=== PATIENT | female | born 1935 | race Caucasian/White ===

== ENCOUNTER 2022-11-08 13:24 | Emergency (ER) | payer MEDICARE, BC, SELFPAY ==
[2022-11-08 13:28] VITALS: BP 143/67; PULSE 79; RESP 16; TEMP 35.8; O2SAT 94; BMI 27.6
--- NOTE | 2022-11-08 14:14 | ED_ITS ---
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 Patient states that last evening she noticed some blood around her rectal area. This morning she had a normal bowel movement but a small amount of blood at that time. However, she then experienced a large amount of diarrhea with bianca blood in it. She notes no abdominal pain at this time. She has not had fever or chills. She did have 1 moment last week where she had a day where she felt incredibly fatigued but in nap seemed to improve it and she was fine the next day. In regards to previous GI bleed 8 years ago she noted IA hemoglobin under 5. She states that she really was not symptomatic. She had endoscopies and colonoscopy at that time and was found that she had a small ulcer at the junction of the small and large intestine where the reattachment had been done previous. 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 Martina is not currently on blood thinners but does take 1 baby aspirin daily. She has not had fever or chills. She does have a contrast dye allergy which results in a rash. Patient denies rapid heart rate but states that she takes metoprolol for that reason. She also had a a valve replacement 3 years ago. Related Data Allergies Allergy/AdvReac Type Severity Reaction Status Date / Time contrat dye Allergy Severe Anaphylaxis Uncoded 11/08/22 13:33 buffered aspirin Allergy Intermediate bleeding Uncoded 11/08/22 13:33 lisinopril AdvReac Severe cough Uncoded 11/08/22 13:33 Review of Systems Status of ROS: Reports: 10 or more systems reviewed and unremarkable except as noted in History and below Const: Denies: fever or chills ENMT: Denies: throat pain or neck pain Cardio: Denies: chest pain, palpitations, swelling of feet/ankles, lightheadedness or shortness of breath with exertion Resp: Denies: shortness of breath or cough GI: Reports: diarrhea and blood in stool; Denies: abdominal pain, nausea or vomiting : Denies: painful urination or urinary frequency Musculo: Denies: neck pain Neuro: Denies: headache or weakness in extremities PFSH PFS Social History Smoking Status: Never smoker Do you use any of these nicotine containing products: None Second hand tobacco smoke exposure: No How often do you have a drink containing alcohol: monthly or less How many standard drinks containing alcohol do you have on a typical day: 1 or 2 How often do you have six or more drinks on one occasion: Never AUDIT-C Alcohol total score: 1 Non-prescribed substance use: denies use service: No Exam Narrative: Exam Narrative: Martina is alert and oriented. She is not in any acute distress. Her eyes are clear. Face is symmetrical. Oral cavity with moist mucous membranes. Flipping of the lower lid shows good color. Heart with regular rate and rhythm and lungs are clear to auscultation. Abdomen is soft there is no tenderness or masses noted. Lower extremities without edema. Const: Vital Signs, click to edit/add: Vital Signs - 24 hr 11/08/22 13:28 11/08/22 17:04 Temperature 96.5 F L Pulse Rate [Pulse Oximeter] 79 70 Respiratory Rate 16 16 Blood Pressure [Ri ght Upper Arm] 143/67 H 194/81 H Pulse Oximetry 94 Oxygen Delivery Me thod Room Air Documenting provider has reviewed patient's vital signs: yes Course Course Hospital Course: At this time will have IV placed. CBC, comprehensive panel, INR all ordered. Will go through with CT without contrast of the abdomen and pelvis at this time. Vital signs reassuring with no evidence of tachycardia or hypotension. Reevaluation(s) Reevaluation #1: Patient is doing well at this time. No repeat episodes of blood in diarrhea. Vital signs remained stable with no evidence of hypotension or tachycardia. Note that patient is on a beta-kyle. Vital Signs Vital signs: Initial Vital Signs Temperature 96.5 F L 11/08/22 13:28 Temperature Source Temporal Artery Scan 11/08/22 13:28 Pulse Rate 79 11/08/22 13:28 Pulse Rhythm 11/08/22 13:28 Pulse Strength 3+ Normal 11/08/22 13:28 Respiratory Rate 16 11/08/22 13:28 Blood Pressure 143/67 H 11/08/22 13:28 Blood Pressure Mean 92 11/08/22 13:28 Blood Pressure Position Sitting 11/08/22 13:28 Pulse Oximetry 94 11/08/22 13:28 Oxygen Delivery Method 11/08/22 13:28 Vital Signs Temperature 96.5 F L 11/08/22 13:28 Pulse Rate 79 11/08/22 13:28 Respiratory Rate 16 11/08/22 13:28 Blood Pressure 143/67 H 11/08/22 13:28 Pulse Oximetry 94 11/08/22 13:28 Oxygen Delivery Method 11/08/22 13:28 Temperature 96.5 F L 11/08/22 13:28 Pulse Rate 70 11/08/22 17:04 Respiratory Rate 16 11/08/22 17:04 Blood Pressure 194/81 H 11/08/22 17:04 Pulse Oximetry 94 11/08/22 13:28 Oxygen Delivery Method 11/08/22 13:28 Medical Decision Making MDM Narrative Medical decision making narrative: 1. GI bleed-patient noted to have a reassuring CT without evidence of diverticulitis. However there is extensive diverticulosis. Patient may have diverticular bleed but at this time no evidence of colitis diverticulitis. Unfortunately CT was limited by the inability to use contrast. Patient has been hemodynamically stable during her time here with no hypotension or tachycardia. Admittedly however patient does have history of metoprolol use. I do speak with both our hospitalist and surgeon regards to this patient. Given the fact that there is been no further bloody stools we will allow her to go home. Would want her to up to return to the emergency room however if these would recur. Recommend follow-up with her primary MD in the next 48 hours for recheck of hemoglobin. Patient will need to contact primary MD as she will need colonoscopy to assess source of bleeding. She will hold her aspirin at this time. 2. The chest and breast nodules-patient was inadvertently given a chest abdomen pelvis CT instead of abdomen and pelvis. This is my error for ordering the wrong test. However, there are abnormalities noted with new pulmonary nodules as well as breast nodules. Patient noted to have a 7 year smoking history in her early 20s. However she was also exposed to secondhand smoke at home with her . It is recommended that she follow-up with repeat CT in 3-6 months time. This can be arranged through her primary MD. also recommend correlation of breast nodules with mammogram. A copy of her report is given to patient. 2. Disposition-home. Return to the ER for recurrent bleeding, shortness of breath, chest pain and as needed. Medical Records Medical records reviewed: Yes I reviewed the patient's medical records Lab Data Lab results reviewed: Yes I reviewed the patient's lab results Labs: Lab Results 11/08/22 11/08/22 11/08/22 Range/Units 15:15 15:15 15:15 WBC 10.48 (4.50-11.00) K/uL RBC 4.31 (4.00-5.20) m/uL Hgb 13.6 (12.0-16.0) gm/dL Hct 40.8 (33.0-51.0) % MCV 95 (80-100) fL MCH 32 (26-34) pg MCHC 33 (32-36) gm/dL RDW Coeff of Bety 13.4 (11.5-15.5) % Plt Count 288 (140-440) K/uL Neut % (Auto) 57.2 (42.0-72.0) % Lymph % (Auto) 33.6 (20-44) % [place] % (Auto) 6.8 (0.0-11.0) % Eos % (Auto) 1.9 (0.0-7.0) % Baso % (Auto) 0.4 (0.0-3.0) % Neut # (Auto) 6.00 (1.7-7.0) K/uL Lymph # (Auto) 3.52 H (0.90-2.90) K/uL [place] # (Auto) 0.70 (0.00-0.90) K/UL Eos # (Auto) 0.20 (0.00-0.50) K/uL Baso # (Auto) 0.04 (0.00-0.30) K/uL INR 0.91 (0.91-1.10) Sodium 137 (135-149) mmol/L Potassium 3.9 (3.6-5.1) mmol/L Chloride 103 (96-114) mmol/L Carbon Dioxide 26 (20-32) mmol/L BUN 31 H (7-30) mg/dL Creatinine 0.9 (0.5-1.5) mg/dL Estimated Creat Clear 38.54 Estimated GFR 62 ml/min Glucose 111 (60-115) mg/dL Calcium 9.4 (8.4-10.6) mg/dL Total Bilirubin 0.4 (0.1-1.5) mg/dL AST 26 (12-35) U/L ALT 29 (4-35) U/L Alkaline Phosphatase 107 (40-150) U/L C-Reactive Protein 0.8 (0.5-1.0) mg/dL Total Protein 7.7 (6.0-8.3) g/dL Albumin 4.4 (3.3-5.0) g/dL Imaging Data CT scan - abdomen: Attestation: I have reviewed the pertinent imaging results. Radiologist's impression: Normal heart size. Normal caliber thoracic aorta and central pulmonary arteries. Coronary artery and aortic vascular calcifications. Mitral annulus sandra cifications. Aortic valve replacement. No pericardial effusion. No thoracic lymphadenopathy. No focal consolidation, pleural effusion, or pneumothorax. Stable mild reticular scarring in the posterior lower lobes. New 7 mm noncalcified pulmonary nodule in the medial left lower lobe (series 8, image 95). New 8 mm nodule in the posterolateral left lower lobe (image 94). New 4 mm noncalcified pulmonary nodule in the posterior left lower lobe (image 77). 3 mm noncalcified pulmonary nodule in the right lower lobe not included in the field of view on prior exam (image 53). Multiple other small ground-glass nodules bilaterally. Calcified granulomas left upper lobe. No central endobronchial lesion or bronchial wall thickening. New mild superior endplate compression fracture T12 with associated sclerosis and mild retropulsion of the superior endplate. This may be acute or subacute. There is a 1.3 cm soft tissue nodule in the upper medial left breast (series 7 image 60). Potential additional soft tissue nodule in the central left breast measuring 1.5 cm (image 74). Mild elevation of the right hemidiaphragm. Abdomen/pelvis: The unenhanced liver, gallbladder, spleen, pancreas, and adrenal glands are normal in appearance. No biliary dilation. Bilateral renal cortical and peripelvic cysts similar to prior exam. No hydronephrosis or ureteral dilation. No obstructing urinary calculi identified. Stable phleboliths adjacent to the distal ureters. The bladder is normal appearance. Hysterectomy. No adnexal mass. Moderate hiatal hernia. Duodenal diverticulum. No small bowel dilation. Moderate amount of stool throughout the colon. Postoperative changes of right hemicolectomy. Extensive colonic diverticulosis without evidence of diverticulitis. No obvious intraluminal blood products. Evaluation for active extravasation is limited without IV contrast. No intraperitoneal free air or fluid. Rectus diastasis with small fat containing umbilical hernia. Aortoiliac vascular calcifications. No lymphadenopathy. Mild anterolisthesis of L4 on L5 and L5 on S1. Lumbar facet arthropathy. Degenerative changes of the pubic symphysis. IMPRESSION: 1. New acute/subacute appearing mild superior endplate compression fracture of T12 with mild retropulsion of the superior endplate. 2. Extensive colonic diverticulosis without evidence of diverticulitis. No obvious intraluminal blood products. Evaluation for active extravasation is limited without IV contrast. 3. Multiple solid and ground-glass pulmonary nodules measuring up to 8 mm. Please see follow-up guidelines below. 4. Two soft tissue nodules in the left breast. Correlate with mammogram. 5. No other acute findings in the chest, abdomen, or pelvis on this noncontrast exam. Discharge Plan Discharge Clinical Impression: Lung nodule, Breast nodule, Rectal bleeding Patient Disposition: Home, Self-Care Condition: Unchanged Additional Instructions: You will be contacted by the hospital to set up a colonoscopy. This should be done sooner rather than later. Recommend holding her aspirin for now. Follow-up with your regular doctor for a recheck tomorrow or Sunday. I would like them to recheck her hemoglobin. If you started experiencing more bleeding, shortness of breath, or lightheadedness please return to the emergency room Follow Up/Referrals: Clare Aguayo DO [Primary Care Provider] - Stand Alone Forms: [employer] Info Instructions
--- NOTE | 2022-11-08 14:36 | CRLHL7_ITS ---
For Patients: As a result of the 21st Century Cures Act, medical imaging exams and procedure reports are released immediately into your electronic medical record. You may view this report before your referring provider. If you have questions, please contact your health care provider. INDICATION: Weakness and fatigue. Bloody stools. TECHNIQUE: CT of the chest, abdomen, and pelvis without IV contrast. Coronal and sagittal reconstructions. COMPARISON: CT of the abdomen and pelvis 04/14/2015. FINDINGS: Chest: Normal heart size. Normal caliber thoracic aorta and central pulmonary arteries. Coronary artery and aortic vascular calcifications. Mitral annulus calcifications. Aortic valve replacement. No pericardial effusion. No thoracic lymphadenopathy. No focal consolidation, pleural effusion, or pneumothorax. Stable mild reticular scarring in the posterior lower lobes. New 7 mm noncalcified pulmonary nodule in the medial left lower lobe (series 8, image 95). New 8 mm nodule in the posterolateral left lower lobe (image 94). New 4 mm noncalcified pulmonary nodule in the posterior left lower lobe (image 77). 3 mm noncalcified pulmonary nodule in the right lower lobe not included in the field of view on prior exam (image 53). Multiple other small ground-glass nodules bilaterally. Calcified granulomas left upper lobe. No central endobronchial lesion or bronchial wall thickening. New mild superior endplate compression fracture T12 with associated sclerosis and mild retropulsion of the superior endplate. This may be acute or subacute. There is a 1.3 cm soft tissue nodule in the upper medial left breast (series 7 image 60). Potential additional soft tissue nodule in the central left breast measuring 1.5 cm (image 74). Mild elevation of the right hemidiaphragm. Abdomen/pelvis: The unenhanced liver, gallbladder, spleen, pancreas, and adrenal glands are normal in appearance. No biliary dilation. Bilateral renal cortical and peripelvic cysts similar to prior exam. No hydronephrosis or ureteral dilation. No obstructing urinary calculi identified. Stable phleboliths adjacent to the distal ureters. The bladder is normal appearance. Hysterectomy. No adnexal mass. Moderate hiatal hernia. Duodenal diverticulum. No small bowel dilation. Moderate amount of stool throughout the colon. Postoperative changes of right hemicolectomy. Extensive colonic diverticulosis without evidence of diverticulitis. No obvious intraluminal blood products. Evaluation for active extravasation is limited without IV contrast. No intraperitoneal free air or fluid. Rectus diastasis with small fat containing umbilical hernia. Aortoiliac vascular calcifications. No lymphadenopathy. Mild anterolisthesis of L4 on L5 and L5 on S1. Lumbar facet arthropathy. Degenerative changes of the pubic symphysis. IMPRESSION: 1. New acute/subacute appearing mild superior endplate compression fracture of T12 with mild retropulsion of the superior endplate. 2. Extensive colonic diverticulosis without evidence of diverticulitis. No obvious intraluminal blood products. Evaluation for active extravasation is limited without IV contrast. 3. Multiple solid and ground-glass pulmonary nodules measuring up to 8 mm. Please see follow-up guidelines below. 4. Two soft tissue nodules in the left breast. Correlate with mammogram. 5. No other acute findings in the chest, abdomen, or pelvis on this noncontrast exam. [employer] - SOLID NODULES: : SINGLE LOW RISK - nodule less than 6 mm: No routine follow-up. - nodule 6-8 mm: CT at 6-12 months, then consider CT at 18-24 months. - nodule greater than 8 mm: Consider CT at 3 months, PET/CT or tissue sampling. SINGLE HIGH RISK - nodule less than 6 mm: Optional CT at 12 months. - nodule 6-8 mm: CT at 6-12 months, then CT at 18-24 months. - nodule greater than 8 mm: Consider CT at 3 months, PET/CT or tissue sampling. MULTIPLE LOW RISK - nodule less than 6 mm: No routine follow-up. - nodule 6-8 mm: CT at 3-6 months, then consider CT at 18-24 months. - nodule greater than 8 mm: CT at 3-6 months, then consider CT at 18-24 months. MULTIPLE HIGH RISK - nodule less than 6 mm: Optional CT at 12 months. - nodule 6-8 mm: CT at 3-6 months, then at 18-24 months. - nodule greater than 8 mm: CT at 3-6 months, then at 18-24 months. [employer] GUID[employer]INES - SUBSOLID NODULES: GROUND GLASS - nodule less than 6 mm: No routine follow-up. - nodule greater than 6 mm: CT at 6-12 months to confirm persistence, then CT every 2 years until 5 years. MULTIPLE - nodule less than 6 mm: CT at 3-6 months. If stable, consider CT at 2 and 4 years. - nodule greater than 6 mm: CT at 3-6 months. Subsequent management based on the most suspicious nodule(s). Please note that all CT scans at this facility use dose modulation, iterative reconstruction, and/or weight-based dosing when appropriate to reduce radiation dose to as low as reasonably achievable. Dictated by Eli Franco MD @ 11/08/2022 3:46:00 PM (Electronically Signed)
[2022-11-08 15:28] LABS: Basophils Absolute Auto 0.04 K/uL (0.00-0.30); Basophils Percent Auto 0.4 % (0.0-3.0); Eosinophils Percent Auto 1.9 % (0.0-7.0); Hematocrit 40.8 % (33.0-51.0); Hemoglobin* 13.6 gm/dL (12.0-16.0); Immature Granulocytes Abs Auto 0.01 K/uL (0.00-0.30); Immature Granulocytes Pct Auto 0.1 %; Lymphocytes Absolute Auto 3.52 K/uL (0.90-2.90); Lymphocytes Percent Auto 33.6 % (20-44); Mean Corpuscular HGB Conc 33 gm/dL (32-36); Mean Corpuscular Hemoglobin 32 pg (26-34); Mean Corpuscular Volume 95 fL (80-100); Monocytes Percent Auto 6.8 % (0.0-11.0); Neutrophils Percent Auto 57.2 % (42.0-72.0); Platelet Count* 288 K/uL (140-440); RDW Coefficient of Variation % 13.4 % (11.5-15.5); Red Blood Count 4.31 m/uL (4.00-5.20); White Blood Count* 10.48 K/uL (4.50-11.00)
[2022-11-08 15:36] LABS: Albumin* 4.4 g/dL (3.3-5.0); Chloride* 103 mmol/L (96-114); Slide Review Reflex No
[2022-11-08 15:37] LABS: INR 0.91 (0.91-1.10); Potassium* 3.9 mmol/L (3.6-5.1); Prothrombin Time 12.8 Seconds; Sodium* 137 mmol/L (135-149)
[2022-11-08 15:39] LABS: Alanine Aminotransferase* 29 U/L (4-35); Alkaline Phosphatase* 107 U/L (40-150); Aspartate Amino Transferase* 26 U/L (12-35); Bilirubin Total* 0.4 mg/dL (0.1-1.5); Blood Urea Nitrogen* 31 mg/dL (7-30); Carbon Dioxide* 26 mmol/L (20-32); Creatinine* 0.9 mg/dL (0.5-1.5); Est. Creatinine Clearance* 38.54; Estimated Glomerular Filt Rate 62 ml/min; Total Protein* 7.7 g/dL (6.0-8.3)
[2022-11-08 15:40] LABS: Calcium* 9.4 mg/dL (8.4-10.6); Glucose* 111 mg/dL (60-115)
[2022-11-08 15:42] LABS: C Reactive Protein* 0.8 mg/dL (0.5-1.0)
[2022-11-08 17:04] VITALS: BP 194/81; PULSE 70; RESP 16
== END 2022-11-08 17:07 | disposition home or self-care (01) ==
PROVIDERS: Emergency Provider Family Medicine; PCP Family Medicine
DX: K62.5 Hemorrhage of anus and rectum (principal); N63.0 Unspecified lump in unspecified breast; R91.1 Solitary pulmonary nodule
CPT/HCPCS: 36415; 71250; 74176; 80053; 85025; 85610; 86140; 99284; 99285

== ENCOUNTER 2022-11-13 10:31 | Outpatient (CLI) | payer MEDICARE, BC, SELFPAY | END 2022-11-13 10:32 | disposition home or self-care (01) | LOC: OP CLINIC 10:32 | PROVIDERS: PCP Family Medicine; Visit Provider Internal Medicine Gastroenterology | DX: K92.1 Melena (principal); K63.5 Polyp of colon; K64.8 Other hemorrhoids; K57.30 Diverticulosis of large intestine without perforation or abscess without bleeding; Z98.0 Intestinal bypass and anastomosis status | CPT/HCPCS: 45385; 88305; 99153; J2250; J3010 ==

== ENCOUNTER 2025-02-07 11:42 | Emergency (ER) | payer MEDICARE, BC, SELFPAY ==
[2025-02-07 11:52] VITALS: BP 148/64; PULSE 81; RESP 18; TEMP 36.6; O2SAT 96; BMI 25.5
--- NOTE | 2025-02-07 12:02 | CRLHL7_ITS ---
For Patients: As a result of the Century Cures Act, medical imaging exams and procedure reports are released immediately into your electronic medical record. You may view this report before your referring provider. If you have questions, please contact your health care provider. INDICATION: Chest pain. TECHNIQUE: Chest 1 view. COMPARISON: 01 October 2014 FINDINGS: Cardiovascular and mediastinum: Heart size and vasculature are normal in caliber and appearance. Mediastinum is within normal limits. Atherosclerotic calcification nonaneurysmal aorta. Lungs and pleural space: Lungs are clear. No sign of infiltrate or mass. No sign of pleural effusion. No pneumothorax. Bones and soft tissues: No significant findings. IMPRESSION: Unremarkable chest. Dictated by Cesar Chase MD @ 02/07/2025 12:51:46 PM (Electronically Signed)
--- NOTE | 2025-02-07 12:02 | ED.GENADULT ---
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 She is scheduled for open heart surgery to replace her valve in approximately 3 weeks. She has had a rough night with fatigue arm heaviness in intermittent chest pain dating back 12 hours. She really has had no chest pain this morning. She has had no cough no sputum production no signs of fever. She has not been short of breath and has had no orthopnea or PND. Due to her fatigue she comes in for further evaluation. Related Data Home Medications ?Medication ?Instructions ?Recorded ?Confirmed alendronate 70 mg tablet 70 mg PO QWEEK 09/25/24 09/25/24 ascorbic acid (vitamin C) 500 mg mg PO DAILY 09/25/24 09/25/24 capsule aspirin 81 mg tablet,delayed 81 mg PO QDAY 09/25/24 09/25/24 release (Adult Aspirin Regimen) calcium carbonate (Calcium 600) 600 mg PO QDAY 09/25/24 09/25/24 chlorthalidone 25 mg tablet 12.5 mg PO QDAY 09/25/24 09/25/24 cholecalciferol (vitamin D3) 50 50 mcg PO QDAY 09/25/24 09/25/24 mcg (2,000 unit) capsule famotidine 10 mg tablet 10 mg PO QDAY 09/25/24 09/25/24 losartan 50 mg tablet 50 mg PO QDAY 09/25/24 09/25/24 metoprolol tartrate 25 mg tablet 25 mg PO QDAY 09/25/24 09/25/24 nifedipine 60 mg tablet,extended 60 mg PO QDAY 09/25/24 09/25/24 release pravastatin 20 mg tablet 20 mg PO QDAY 09/25/24 09/25/24 Allergies Allergy/AdvReac Type Severity Reaction Status Date / Time contrat dye Allergy Severe Anaphylaxis Uncoded 09/25/24 14:59 buffered aspirin Allergy Intermediate bleeding Uncoded 09/25/24 14:59 lisinopril AdvReac Severe cough Uncoded 09/25/24 14:59 Review of Systems Status of ROS: Reports: 10 or more systems reviewed and unremarkable except as noted in History and below PFSH PFSH Social History Smoking Status: Never smoker Do you use any of these nicotine containing products: None Second hand tobacco smoke exposure: No How often do you have a drink containing alcohol: monthly or less How many standard drinks containing alcohol do you have on a typical day: 1 or 2 How often do you have six or more drinks on one occasion: Never AUDIT-C Alcohol total score: 1 Non-prescribed substance use: denies use service: No Exam Narrative: Exam Narrative: EXAM GENERAL: Patient appears comfortable and well. EYES: No scleral icterus. ENT: Tympanic membranes and oropharynx normal. THYROID: no thyroid nodules or thyromegaly. LYMPH: No supraclavicular or cervical lymphadenopathy. SKIN: Visible skin seen during exam normal or with benign process only. EXT: No dependent lower extremity pedal edema. HEART: Regular rate with a 3/6 crescendo decrescendo systolic murmur. LUNGS: Clear to auscultation bilaterally with no crackles or wheezes. ABD: Soft, non tender, non distended. PSYCH: Good eye contact, speech is not pressured. Const: Vital Signs, click to edit/add: Vital Signs - 24 hr 02/07/25 11:52 02/07/25 12:40 Temperature 97.8 F Pulse Rate [Pulse Oximeter] 81 76 Respiratory Rate 18 18 Blood Pressure [Ri ght Upper Arm] 148/64 H 124/59 L Pulse Oximetry 96 94 Oxygen Delivery Me thod Room Air Room Air Course Course ED Course: Patient seen and evaluated. She is noted to have a stable examined vital signs. Chest x-ray CBC basic metabolic panel troponin D-dimer EKG pending. Vital Signs Vital signs: Initial Vital Signs Temperature 97.8 F 02/07/25 11:52 Temperature Source Temporal Artery Scan 02/07/25 11:52 Pulse Rate 81 02/07/25 11:52 Pulse Rhythm Regular 02/07/25 11:52 Respiratory Rate 18 02/07/25 11:52 Blood Pressure 148/64 H 02/07/25 11:52 Blood Pressure Mean 92 02/07/25 11:52 Blood Pressure Position Sitting 02/07/25 11:52 Pulse Oximetry 96 02/07/25 11:52 Oxygen Delivery Method Room Air 02/07/25 11:52 Vital Signs Temperature 97.8 F 02/07/25 11:52 Pulse Rate 81 02/07/25 11:52 Respiratory Rate 18 02/07/25 11:52 Blood Pressure 148/64 H 02/07/25 11:52 Pulse Oximetry 96 02/07/25 11:52 Oxygen Delivery Method Room Air 02/07/25 11:52 Temperature 97.8 F 02/07/25 11:52 Pulse Rate 76 02/07/25 12:40 Respiratory Rate 18 02/07/25 12:40 Blood Pressure 124/59 L 02/07/25 12:40 Pulse Oximetry 94 02/07/25 12:40 Oxygen Delivery Method Room Air 02/07/25 12:40 Medical Decision Making MDM Narrative Medical decision making narrative: Patient is 89-year-old woman comes in with weakness. 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 She comes in with fatigue and weakness and as result we did do workup including EKG troponin D-dimer CBC comprehensive metabolic panel chest x-ray. All workup is negative. She also had negative UA for infection. He has a normal exam with the exception of the murmur and normal vital signs. This time reassurance is offered. She does have valve surgery scheduled for 3 weeks from now. I would not change any medications would recommend she follow-up with her primary physician as needed. Lab Data Labs: Lab Results 02/07/25 02/07/25 Range/Units 12:33 12:40 WBC 15.78 H (4.50-11.00) K/uL RBC 3.03 L (4.00-5.20) m/uL Hgb 9.8 L (12.0-16.0) gm/dL Hct 30.9 L (33.0-51.0) % MCV 102 H (80-100) fL MCH 32 (26-34) pg MCHC 32 (32-36) gm/dL RDW Coeff of Bety 14.5 (11.5-15.5) % Plt Count 271 (140-440) K/uL Neut % (Auto) 78.8 H (42.0-72.0) % Lymph % (Auto) 16.7 L (20-44) % Mitchell % (Auto) 3.5 (0.0-11.0) % Eos % (Auto) 0.3 (0.0-7.0) % Baso % (Auto) 0.4 (0.0-3.0) % Neut # (Auto) 12.40 H (1.7-7.0) K/uL Lymph # (Auto) 2.60 (0.90-2.90) K/uL Mitchell # (Auto) 0.60 (0.00-0.90) K/UL Eos # (Auto) 0.00 (0.00-0.50) K/uL Baso # (Auto) 0.10 (0.00-0.30) K/uL Abs Immat Gran (auto) 0.00 (0.00-0.30) K/uL Imm/Tot Granulo (auto) 0.3 % D-Dimer Quant (PE/DVT) 0.06 (0.00-0.50) ug/ml Sodium 135 (135-149) mmol/L Potassium 3.8 (3.6-5.1) mmol/L Chloride 100 (96-114) mmol/L Carbon Dioxide 28 (20-32) mmol/L Anion Gap 7 (7-15) mEq/L BUN 36 H (7-30) mg/dL Creatinine 0.8 (0.5-1.5) mg/dL Estimated Creat Clear 37.09 Estimated GFR 70 ml/min Glucose 125 H (60-115) mg/dL Calcium 9.0 (8.4-10.6) mg/dL Total Bilirubin 0.3 (0.1-1.5) mg/dL AST 21 (12-35) U/L ALT 19 (4-35) U/L Alkaline Phosphatase 56 (40-150) U/L Troponin I < 0.01 (0.01-0.04) ng/mL Total Protein 6.4 (6.0-8.3) g/dL Albumin 3.9 (3.3-5.0) g/dL Urine Color Yellow (Yellow) Urine Appearance Clear (Clear) Urine pH 7.0 (5.0-8.5) Ur Specific Winnie 1.015 (1.000-1.030) Urine Protein Negative (Negative) Urine Glucose (UA) Negative (Negative) Urine Ketones Negative (Negative) Urine Blood Negative (Negative) Urine Nitrite Negative (Negative) Urine Bilirubin Negative (Negative) Urine Urobilinogen 0.2 (0.2-1.0) Ur Leukocyte Esterase Negative (Negative) Discharge Plan Discharge Clinical Impression: Weakness Patient Disposition: Home, Self-Care Condition: Stable Instructions: Weakness (ED) Additional Instructions: Continue current care Follow-up with your doctor as needed. Activity Level: No Restrictions Discharge Diet: Regular Prescriptions: No Action losartan 50 mg tablet 50 mg PO QDAY pravastatin 20 mg tablet 20 mg PO QDAY nifedipine 60 mg tablet extended release 60 mg PO QDAY aspirin [Adult Aspirin Regimen] 81 mg tablet,delayed release (DR/EC) 81 mg PO QDAY ascorbic acid (vitamin C) 500 mg capsule PO DAILY famotidine 10 mg tablet 10 mg PO QDAY cholecalciferol (vitamin D3) 50 mcg (2,000 unit) capsule 50 mcg PO QDAY metoprolol tartrate 25 mg tablet 25 mg PO QDAY chlorthalidone 25 mg tablet 12.5 mg PO QDAY alendronate 70 mg tablet 70 mg PO QWEEK calcium carbonate [Calcium 600] 600 mg calcium (1,500 mg) tablet 600 mg PO QDAY Follow Up/Referrals: Clare Aguayo DO [Primary Care Provider] - Stand Alone [facility] Instructions
[2025-02-07 12:40] VITALS: BP 124/59; PULSE 76; RESP 18; O2SAT 94
[2025-02-07 12:40] LABS: Basophils Percent Auto 0.4 % (0.0-3.0); Eosinophils Percent Auto 0.3 % (0.0-7.0); Hematocrit 30.9 % (33.0-51.0); Hemoglobin* 9.8 gm/dL (12.0-16.0); Immature Granulocytes Pct Auto 0.3 %; Lymphocytes Percent Auto 16.7 % (20-44); Mean Corpuscular HGB Conc 32 gm/dL (32-36); Mean Corpuscular Hemoglobin 32 pg (26-34); Mean Corpuscular Volume 102 fL (80-100); Monocytes Percent Auto 3.5 % (0.0-11.0); Neutrophils Percent Auto 78.8 % (42.0-72.0); Platelet Count* 271 K/uL (140-440); RDW Coefficient of Variation % 14.5 % (11.5-15.5); Red Blood Count 3.03 m/uL (4.00-5.20); White Blood Count* 15.78 K/uL (4.50-11.00)
[2025-02-07 12:47] LABS: Appearance Urine Clear (Clear); Bilirubin Urine Negative (Negative); Blood Urine Negative (Negative); Color Urine Yellow (Yellow); Glucose Urine Negative (Negative); Ketones Urine Negative (Negative); Leukocyte Esterase Urine Negative (Negative); Nitrite Urine Negative (Negative); Protein Urine Negative (Negative); Specific Gravity Urine 1.015 (1.000-1.030); Urobilinogen Urine 0.2 (0.2-1.0)
[2025-02-07 12:48] LABS: Slide Review Reflex No
[2025-02-07 12:54] LABS: Albumin* 3.9 g/dL (3.3-5.0); Chloride* 100 mmol/L (96-114); Sodium* 135 mmol/L (135-149)
[2025-02-07 12:55] LABS: Potassium* 3.8 mmol/L (3.6-5.1)
[2025-02-07 12:57] LABS: Alanine Aminotransferase* 19 U/L (4-35); Alkaline Phosphatase* 56 U/L (40-150); Anion Gap 7 mEq/L (7-15); Aspartate Amino Transferase* 21 U/L (12-35); Bilirubin Total* 0.3 mg/dL (0.1-1.5); Blood Urea Nitrogen* 36 mg/dL (7-30); Carbon Dioxide* 28 mmol/L (20-32); Creatinine* 0.8 mg/dL (0.5-1.5); Est. Creatinine Clearance* 37.09; Estimated Glomerular Filt Rate 70 ml/min
[2025-02-07 12:58] LABS: Glucose* 125 mg/dL (60-115); Total Protein* 6.4 g/dL (6.0-8.3)
[2025-02-07 13:10] LABS: Troponin I* < 0.01 ng/mL (0.01-0.04)
[2025-02-07 13:11] LABS: D Dimer Quantitative* 0.06 ug/ml (0.00-0.50)
[2025-02-07 13:25] VITALS: BP 114/51; PULSE 71; RESP 16
--- OUTSIDE RECORDS SUMMARY | 2025-02-08 17:24 | XMS_ITS | Clinical Summary ---
Author Organization [facility] Address [address] [place] [id number] Care Team Providers Care Drug And Alcohol Counsellor Name Role Phone Prosper Doyle Jakob Unavailable [phone] Cesar Godinez MD Unavailable Clare Aguayo DO Primary Care Provider [phone] Cammy Kwan Unavailable [phone] Allergies Active Allergy Reactions Criticality Noted Date Comments Naproxen GI Bleeding 08/23/2015 Diatrizoate Allergen Rash 08/08/2019 Ibuprofen GI Bleeding 08/23/2015 Latex 04/08/2007 Lisinopril 04/08/2007 cough 02/23 Gemfibrozil Rash 02/14/2013 Rash improved off medication; recurred when rechallenged Atenolol 04/08/2007 decreased heartrate,near syncope Medications ASPIRIN 81 MG TAB, DELAYED RELEASE Take 81 mg by mouth once daily with a meal. DO NOT CRUSH OR CHEW. 0 007 Active ascorbic acid, vitamin C, (VITAMIN C) 500 mg tablet Take 500 mg by mouth once daily with evening meal. Active zinc sulfate (ZINC-220) 220 (50) mg capsule Take 220 mg by mouth once daily. Active acetaminophen (TYLENOL EXTRA STRGTH) 500 mg tablet Take 500 mg by mouth once daily if needed. Max acetaminophen dose: 4000mg in 24 hrs. Active ferrous sulfate 325 mg delayed release tabletIndications: Restless leg Take 1 Tablet (325 mg) by mouth two times daily with meals. 180 Tablet 3 023 Active Additional Information Patient taking differently:325 mg OralDAILY WITH MEAL, Reported on 01/28/2025 nitroglycerin (NITROSTAT) 0.4 mg sublingual tabletIndications: Esophageal spasm Place 1 Tablet (0.4 mg) under the tongue every 5 minutes if needed (esophageal spasm). 25 Tablet 023 Active calcium citrate-vitamin D3, 315 mg-250 units, (Citracal + D) 315 mg-6.25 mcg (250 unit) tab tablet 650 mg calcium and 1000 IU vitamin D3 once daily. Active cholecalciferol (Vitamin D) 1,000 unit capsule Take 1,000 units by mouth. EVER OTHER DAY Active magnesium 250 mg tab Take 1 Tablet (250 mg) by mouth once daily. Active famotidine (PEPCID) 20 mg tabletIndications: History of gastroesophageal reflux (GERD) Take 1 Tablet (20 mg) by mouth two times daily. 180 Tablet 3 024 Active metoprolol tartrate (LOPRESSOR) 25 mg tabletIndications: SVT (supraventricular tachycardia) (HC) Take 1 Tablet (25 mg) by mouth two times daily. 180 Tablet 3 024 Active pravastatin (PRAVACHOL) 40 mg tabletIndications: Hyperlipidemia, unspecified hyperlipidemia type Take 1 Tablet (40 mg) by mouth at bedtime. 90 Tablet 3 024 Active miscellaneous medical supply (Blood Pressure Cuff) miscIndications:HT N (hypertension) As directed. Automatic blood pressure cuff 1 Each 024 Active losartan (COZAAR) 50 mg tabletIndications: HTN (hypertension) Take 1 Tablet (50 mg) by mouth once daily. Active amoxicillin 500 mg capsuleIndications :S/P TAVR (transcatheter aortic valve replacement) TAKE 4 CAPSULE 30-60 MINUTES PRIOR TO TEETH CLEANING 4 Capsule 3 024 Active alendronate (Fosamax) 70 mg tabletIndications: Osteoporosis, unspecified osteoporosis type, unspecified pathological fracture presence Take 1 Tablet (70 mg) by mouth once a week in the morning. Take on empty stomach with full glass of water. Do not lie down for 1 hr. 12 Tablet 3 024 Active predniSONE 5 mg tabletIndications: PMR (polymyalgia rheumatica) (HC) 15mg daily x 4wks, wean by 2.5mg every 4weeks if no symptoms down to 10mg daily. 120 Tablet 1 025 Active warfarin 2 mg tabletIndications: Hypoattentuated leaflet thickening (HALT),Anticoagula tion monitoring, INR range 2-3 Take by mouth 5 mg (2 mg x 2.5) every day in the evening OR as directed 025 Active NIFEdipine 90 mg extended-release tabletIndications: Essential hypertension Take 1 Tablet (90 mg) by mouth once daily before a meal. 90 Tablet 3 025 Active omeprazole 20 mg tabletIndications: Gastric reflux Take 1 Tablet (20 mg) by mouth once daily before a meal. 90 Tablet 3 025 Active chlorthalidone 25 mg tabletIndications: HTN (hypertension) TAKE ONE-HALF (1/2) TABLET DAILY 45 Tablet 025 Active chlorthalidone (HYGROTON) 25 mg tabletIndications: HTN (hypertension) TAKE 1/2 TABLET (12.5MG) ONCE DAILY 45 Tablet 3 024 2024 Discontinued NIFEdipine (PROCARDIA XL) 90 mg extended-release tabletIndications: Essential hypertension Take 1 Tablet (90 mg) by mouth once daily before a meal. 90 Tablet 025 2024 Discontinued Active Problems Problem Noted Date Diagnosed Date Hypoattentuated leaflet thickening (HALT) 2024 Anticoagulation monitoring, INR range 2-3 2024 S/P TAVR (transcatheter aortic valve replacement ) 10/27/2021 Clinical trial exam 10/27/2021 Status post transcatheter ao rtic valve replacement (TAVR) using bioprosthesis 10/21/2019 Overview (10/22/2019): 23 mm Mitchell 3 -Dr. Estevez PMR (polymyalgia rheumatica) 08/20/2018 Severe aortic stenosis 07/18/2017 Overview (07/18/2017): December 2016. Had cardiology consult, recommend follow up in 6months with repeat echo Anastomotic ulcer 02/24/2014 Overview (02/24/2014): Colonoscopy January 2014 with anastomotic ulcer with trace bleeding, no followup colonoscopy needed Iron deficiency anemia 01/20/2014 Overview (09/01/2014): Colonoscopy 01/2014 anastomotic ulcer with trace bleeding, no follow up colonoscopy needed EGD normal 12/2013. Hgb normal and stable off iron as of 06/2014 Insomnia 06/23/2013 Overview (06/23/2013): Patient not satisfied with Melatonin and Acetaminophen PM; I suggest Unisom as needed. 06/23/2013 Diverticulosis of colon (without mention of hemo rrhage) 08/12/2012 Overview (08/12/2012): Colonoscopy 07/2012 diverticulosis, no follow up needed Ear pain 06/10/2012 Overview (06/23/2013): Recheck right auricle next office visit. Still a bit scaly: very superficial 06/23/2013 Other seborrheic keratosis 01/25/2012 Overview (01/25/2012): Right Auricle; will reevaluate next office visit. 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 06/08/2011 Lipoma of other skin and subcutaneous tissue Overview (06/08/2011): Left posterior arm: 10x6 cm Leg cramps 06/08/2011 Generalized osteoarthritis 04/27/2010 Overview (04/27/2010): Left #1 CMC joint involved. 04/27/2010 Postmenopausal atrophic vaginitis 04/27/2010 Overview (04/27/2010): Does well with infrequent dosing Premarin. 04/27/2010 Osteoporosis, unspecified 04/08/2009 Overview (08/15/2017): Started on Fosamax 03/2009: Actually only took it Oct thru Fe... 04/27/2010 After some discussion, patient agrees to restart Fosamax and will report back in a month. 08/30/2010 Bone mineral density soon 06/23/2013 Bone mineral density shows progression in Spine: patient advised to continue Fosamax. 07/01/2013 Dexa 07/2017 osteoporosis fairly stable from 2014, continue fosamax Lumbosacral spondylosis without myelopathy 12/31 Routine general medical exam ination at a health care facility 04/08/2007 Overview (02/10/2014): Colonoscopy 04/2002 Recheck 10 yrs Colonoscopy 01/2014 anastomotic ulcer with trace bleeding, no follow up colonoscopy needed Unspecified essential hypertension 03/05/2007 Mixed hyperlipidemia 03/05/2007 Overview (06/23/2013): Excellent results on Crestor 06/23/2013 Resolved Problems Problem Noted Date Diagnosed Date Resolved Date Pseudopolyposis of colon wit hout complication, unspecified part of colon 02/19/2024 09/26/2024 Aortic stenosis, moderate 08/23/2015 Pain in joint, ankle and foot 06/10/2012 06/23/2013 Overview (06/10/2012): Recheck left foot next office visit. 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 06/08/2011 Symptomatic menopausal or fe male climacteric states 04/08/2007 04/09/2008 Esophagitis, unspecified 04/08/200712/2009 Encounters Date Type Department Care Team Description 02/01/2025 Refill [facility] [place] [address] [place] [place] [address] Clare Aguayo DO Refill Request (Chlorthalidone) 01/29/2025 2:00 PM CDT Orders Only [facility] [place] [address] [place] [address] Lab[facility] [place] [facility] 01/29/2025 Anticoagulation (warfarin) [facility] [place] [address] [place] [address] 1[facility] Anticoagulation 01/29/2025 Telephone [facility] [place] [address] [place] [address] Clare Aguayo DO Anticoagulation 01/28/2025 11:30 AM CDT Office Visit [address] [place] [address] Eric Latham DPM Consult (Left Great Toe Pain. Ingrown Toenail) 01/28/2025 Travel 01/26/2025 Telephone [facility] [place] [address] [place] [address] Clare Aguayo DO Anticoagulation (BPA - Omeprazole) 01/26/2025 Travel 01/22/2025 11:40 AM CDT Office Visit [address] [address] Clare Aguayo DO Procedure (Wants to talk about open Heart surgery, increased anxiety ) 01/22/2025 10:30 AM CDT Orders Only [facility] [place] [address] [place] [address] Lab[facility] [place] [facility] 01/22/2025 Anticoagulation (warfarin) [facility] [place] [address] [place] [address] 1[facility] Anticoagulation 01/22/2025 Travel 01/21/2025 Refill [facility] [place] [address] [place] [address] Clare Aguayo DO Refill Request (Nifedipine) 01/07/2025 11:00 AM CDT Orders Only [address] [address] Lab[place] [facility] 01/07/2025 Anticoagulation (warfarin) [facility] [place] [address] [place] [address] 1[facility] Anticoagulation 01/07/2025 Travel 01/06/2025 11:00 AM CDT Phone [place] [facility] [address] [place] [address] Mercedes Olmstead, RN Questions 01/06/[address] [address] Khalif Barboza MD Wants to speak with Dr Barboza 01/06/2025 Telephone [facility] [address] [place] [address] Mercedes Olmstead RN Error-please disregard 01/05/2025 2:30 PM CDT Phone Office [place] [facility] [address] [place] [address] Tad Killian MBBS 01/04/2025 Travel 12/31/2024 1:45 PM CDT Orders Only [facility] [place] [address] [place] [address] Lab[facility] [place] [facility] 12/31/2024 Anticoagulation (warfarin) [facility] [place] [address] [place] [address] 1, [facility] Antico[facility] 12/31/2024 Travel 12/29/2024 3:00 PM CDT Office [place] [facility] [address] [facility] [address] [place] [phone] Tad Killian MBBS CV Valve New (SAVR vs. TAVR) 12/29/2024 Travel 12/26/2024 1:45 PM CDT Orders Only [facility] [place] [address] [place] [address] Lab, [place] [facility] (/) 12/26/2024 Telephone [facility] [place] [address] [facility] [address] Clare Aguayo DO Message (Lab appointment inquiry) 12/26/2024 Anticoagulation (warfarin) [facility] [place] [address] [place] [address] 1, [facility] Anticoagulation 12/26/2024 Travel 12/24/2024 10:25 AM CDT Office Visit [facility] [place] [address] [address] Clare Aguayo DO Follow Up (PMR) 12/24/2024 Travel 12/20/2024 Travel 12/19/2024 1:00 PM CDT Orders Only [facility] [place] [place] [facility] [address] [facility] [place] [facility] 12/19/2024 Anticoagulation (warfarin) [facility] [place] [address] [place] [address] 1[facility] Anticoagulation 12/19/2024 Travel 12/16/2024 12:55 PM CDT Office Visit [facility] [place] [address] [address] Adela Eubanks PA UTI 12/16/2024 Anticoagulation (warfarin) [facility] [place] [address] [facility] [address] [facility] Anticoagulation (Chart update) 12/16/2024 Telephone [facility] [place] [address] Clare Aguayo DO Anticoagulation (OPA- TRIMETHOPRIM-SULFAMET HOXAZOLE 160 MG-800 MG TABLET & Warfarin) 12/16/2024 Travel 12/15/2024 6:25 PM CDT E-Visit [facility] [place] [address] Adela Eubanks PA eVisit for Urinary Tract Infection 12/15/2024 Telephone [facility] [place] [address] [place] [address] Clare Aguayo DO Anticoagulation (TARGET END DATE CONFIRMATION ) 12/10/2024 1:00 PM CDT Telemedicine [facility] [address] [place] [address] Becca Pretty MD 12/03/2024 Telephone [facility] [address] [place] [phone] Lenny Estevez MD bruisng related to coumadin 12/02/2024 1:30 PM CDT Telemedicine [facility] [address] [place] [address] Lenny Estevez MD 12/02/2024 10:30 AM CDT Orders Only [facility] [place] [address] [place] [address] Lab[facility] [place] [facility] 12/02/2024 Refill [facility] [place] [address] [place] [address] Clare Aguayo DO Refill Request (Warfarin) 12/02/2024 Anticoagulation (warfarin) [facility] [place] [address] [place] [address] 1[facility] Anticoagulation (Lab ) 12/02/2024 Travel 11/25/2024 9:30 AM PRODUCT DESIGNER Ancillary Procedure [facility] [address] [facility] [address] [place] [address] 11/25/2024 9:00 AM PRODUCT DESIGNER Orders Only [facility] [address] [facility] [address] [place] [address] Lab 11/25/2024 Travel 11/22/2024 Travel 11/19/2024 Telephone [facility] [address] [place] [address] Lenny Estevez MD Medication Management (Prednisone) 11/18/2024 1:00 PM PRODUCT DESIGNER Office Visit [facility] [address] [place] [address] Lenny Estevez MD CV Valve Est (EARLY TAVR 5YR VST/[facility] RESEARCH/PASTER OPERATOR TESSIE [id number]/ECHO @ 11AM/(6MW) / APPT CONFIRMED 11/17 BY RACHEL//PCP: Clare Aguayo DO/) 11/18/2024 10:38 AM PRODUCT DESIGNER - 11/18/2024 11:59 PM PRODUCT DESIGNER Hospital Encounter [facility] [address] [place] [address] Lenny Estevez MD Jose Cruz, Becca, RDCS, RVT S/P TAVR (transcatheter aortic valve replacement) 11/18/2024 Orders Only [facility] [address] [place] [address] Lenny Estevez MD <No scans attached> 11/17/2024 3:40 PM PRODUCT DESIGNER Ancillary Procedure [facility] [place] [address] [place] [address] 11/17/2024 3:00 PM PRODUCT DESIGNER Orders Only [facility] [place] [address] [place] [address] Lab[facility] [place] [facility] 11/17/2024 Anticoagulation (warfarin) [facility] [place] [address] [place] [address] 1[facility] Anticoagulation 11/17/2024 Travel from Last 3 Months Immunizations Immunization Administration Dates Next Due AMB INFLUENZA IIV3 (AGE 65+ YRS) PF (Flu Clinic Only) 06/28/2018 AMB Influenza, IIV3 (Age >=3 years)(Flu Clinic Only) 07/16/2008 AMB Influenza, IIV4 PF (=>6 mos Flulaval,Fluzone Fluarix)(Flu Clinic Only) 06/26/2019 Amb Influenza, Inactivated A IIV4 (Age 65+ Years) Preserv Free 06/24/2020 COVID-19 VACCINE SPIKEVAX (M ODERNA 50MCG/0.5ML) 12YO+ PFS 06/23/2024,07/16/2023 COVID-19 vaccine ([employer]-Bio NTech 30mcg/0.3mL) 12YO+ BIVALENT PF, MDV 08/02/2022 COVID-19 vaccine ([employer] NTech 30mcg/0.3mL) 12YO+ DONAVON-SUCROSE PF, MDV 02/22/2022 COVID-19 vaccine (Pfizer-Bio NTech 30mcg/0.3mL) PF, MDV 07/05/2021,11/27/2020,11/06/2020 Influenza A (H1N1), Inactivated 09/28/2009 Influenza A (H1N1), Inactiva sofya (Age >=3 Years) 09/28/2009 Influenza, High-dose Inactivated 07/17/2016,06/25,06/30/2014 Influenza, IIV3 (Age >=3 years) 06/23/20 13,06/10/2012,06/08/2011,2009,06/25/2009,07/19/2007,08/01/2006 Influenza, Inactivated AIIV4 (Age 65+ Years) Preserv Free 07/16/2023,08/02/2022,06/15/2021 Influenza, Inactivated IIV3 (Age 65+ Years) Preserv Free 06/23/2024,07/11/2017 Pneumococcal Poly,23-Valent (Pneumovax) 07/12/2005,06/24/2005 Pneumococcal conj 13-Valent (Prevnar 13) 07/18/2014,07/17/2014 Td (Age >=7 Years) 02/29/2004,01/10/1994 Tdap 02/20/2024,06/08/2011 Zoster (Zostavax-ZVL, live) 04/27/2010 Family History Medical History Relation Name Comments Cancer Brother 1 Lenny Stomach Heart Disease Brother 2 Myron @ 55yo Other Brother 3 Osorio Heart Valve Rep lacement: COPD Heart Disease Father Myron CHF Arthritis Mother Radha Rheumatoid Cancer Sister 1 Amy a form of Leuke ray Diabetes Sister 1 Amy Other Sister 1 Amy Heart Valve Rep lacement: Myelodysplasia Cancer-breast No Family History Cancer-ovarian No Family History Relation Name Status Comments Brother 1 Lenny (Age 65) gastric ca ncer Brother 2 Myron (Age 54) CAD Brother 3 Osorio Alive Father Myron (Age 80) CHF Asthma Mother Radha (Age 78) Sister 1 Amy (Age 82) Sister 2 Radha (Age 82) lymphoma Son Zain Alive Lung Ca; in rem ission 05/2013; chemo q 4 weeks Social History Tobacco Use Types Packs/Day Years Used Date Smoking Tobacco: Former Cigarettes 0.2 5 0 09/24/1956 - 09/24/1961 Smokeless Tobacco: Never Tobacco Cessation:Counseling Given: Yes Alcohol Use Standard Drinks/Week Comments Yes 0 (1 standard drink = 0.6 oz pur e alcohol) maybe once monthly PHQ-2 Answer Date Recorded PHQ-2 TOTAL SCORE 1 04/23/2024 Social Connections Answer Date Recorded Do you often feel lonely or isolated from those around you? 0 10/21/2024 Alcohol Use Answer Date Recorded How often do you have a drink containing alcohol ? 1 02/12/2023 How many drinks containing a lcohol do you have on a typical day when you are drinking? 0 02/12/2023 How often do you have five or more drinks on one occasion? 0 02/12/2023 Financial Resource Strain Answer Date R ecorded Difficulty of Paying Living Expenses 3 10/21/2024 Difficulty of Paying Living Expenses Not on file 10/21/2024 Food Insecurity Answer Date Recorded Do you worry your food will run out before you are able to buy more? 1 10/21/2024 Transportation Needs Answer Date Record ed Does lack of transportation keep you from medica l appointments? 1 10/21/2024 Does lack of transportation keep you from work, meetings or getting things that you need? 1 10/21/2024 Housing Stability Answer Date Recorded What is your housing situation today? 1 10/21/2024 Utilities Answer Date Recorded Do you have trouble paying f or utilities (for example, heat, electricity, water, phone)? 1 10/21/2024 Comments No Sex and Gender Information Value Date Recorded Sex Assigned at Female 09/03/2021 12:45 PM PRODUCT DESIGNER Legal Sex Female 5:25 AM PRODUCT DESIGNER Gender Identity Female 11/21/2021 8:15 PM PRODUCT DESIGNER Sexual Orientation Straight 09/03/2021 12 :45 PM PRODUCT DESIGNER Occupation Industry Job Start Date Job End Date Retired Not on file Not on file Not on file Obstetrics History Para Term AB IAB SAB Ectopic Multiple Livin g Live Births 11 6 0 1 5 0 5 0 0 5 5 Date Outcome GA Total Labor Labor/2nd/3rd Weight Sex Type Anes PTL Rachel A1 A5 Name Clin Comments: af cs: P l [facility] Para Living Para Living Para Living Para Living Para Living SAB SAB SAB SAB SAB Last Filed Vital Signs Vital Sign Reading Time Taken Comments Blood Pressure 132/64 01/28/2025 11:23 AM CDT Pulse 75 01/28/2025 11:23 AM CDT Temperature 37.3 C (99.1 F) 10/21/2024 1:29 PM PRODUCT DESIGNER Respiratory Rate 16 12/29/2024 3:02 PM CDT Oxygen Saturation 96% 01/28/2025 11:23 AM CDT Inhaled Oxygen Concentration - - Weight 74.5 kg (164 lb 4.8 oz) 01/28/2025 11:23 AM CDT Height 169.8 cm (5' 6.85) 01/28/2025 11:23 AM C DT Body Mass Index 25.85 01/28/2025 11:23 AM CDT Plan of Treatment Upcoming Encounters Date Type Department Care Team (Late st Contact Info) Description 02/11/2025 10:50 AM CDT Office Visit [facility] [place] [address] [place] [address] Clare Aguaoy DO [address] [place] [address] 02/19/2025 3:00 PM CDT Orders Only [facility] [place] [address] [place] [address] [place] 02/23/2025 10:00 AM CDT Phone Office Visit [facility] [address] [place] [phone] You Feldman, RN [address] [facility] [address] [place] [address] 03/02/2025 7:30 AM CDT Hospital Encounter [facility] [address] [place] [address] Tad Killian MBBS [address] [place] [address] 03/02/2025 7:30 AM CDT - 03/02/2025 1:[address] [facility] [address] [place] [address] Maria D Tadfelix Collins, JUNAID [address] [place] [id number] [place] [address] TAVR EXPLANT, AORTIC VALVE REPLACEMENT W/PERCY 03/30/2025 10:25 AM CDT Office Visit [facility] [place] [address] [place] [address] Clare Aguayo DO [address] [place] [address] Scheduled Procedures Name Priority Associated Diagnoses Date/Ti me REPLACEMENT AORTIC VALVE , S/P TAVR 03/02/2025 7:30 AM CDT Health Maintenance Due Date Last Done Comments Zoster (shingles) series for age 50+ (2 of 3) 06/22/2010 04/27/2010 RSV vaccine for adults or (1 - 1-dose 75+ series) 2010 Medicare Wellness for age 65+ 02/19/2025, 02/12/2023, 01/16/2022, Additional history exists Depression screening for age 12+ 04/23/2025 04/23/20 24 BMI (ht and wt on same day) for age 18+ 01/28/2026 01/28/2025, 12/29/2024, 11/18/2024, Additional history exists Tetanus booster 02/19/2034 02/20/2024, 05/25, 02/29/2004, Additional history exists Pneumococcal series for age 50+ Completed 07/18/2014, 07/17/2014, 07/12/2005, Additional history exists DEXA/DXA scan for age 65+ Completed 2022, 06/21/2021, 08/06/2017, Additional history exists Tdap Completed 02/20/2024, 06/08/2011 Influenza Vaccine Completed 06/23/2024, , 08/02/2022, Additional history exists COVID-19 vaccine series Completed 12/27/19, 06/23/2024, 07/16/2023, Additional history exists Procedures Procedure Name Priority Date/Time Associated Diagnosis Comments INR,POCT Routine 01/29/2025 1:57 PM CDT Hypoattentuated leaflet thickening (HALT) Anticoagulation monitoring, INR range 2-3 INR,POCT Routine 01/22/2025 10:45 AM CDT Hypoattentuated leaflet thickening (HALT) Anticoagulation monitoring, INR range 2-3 INR,POCT Routine 01/07/2025 11:16 AM CDT Hypoattentuated leaflet thickening (HALT) Anticoagulation monitoring, INR range 2-3 INR,POCT Routine 12/31/2024 1:58 PM CDT Hypoattentuated leaflet thickening (HALT) Anticoagulation monitoring, INR range 2-3 INR,POCT Routine 12/26/2024 1:48 PM CDT Hypoattentuated leaflet thickening (HALT) Anticoagulation monitoring, INR range 2-3 INR,POCT Routine 12/19/2024 1:07 PM CDT Hypoattentuated leaflet thickening (HALT) Anticoagulation monitoring, INR range 2-3 URINE CULTURE Routine 12/16/2024 12:58 PM CDT Lower urinary tract symptoms (LUTS) URINALYSIS MICROSCOPIC Routine 12/16/2024 12:58 PM CDT Lower urinary tract symptoms (LUTS) URINALYSIS MACROSCOPIC - [facility] ONLY POC DIP (QUEST) Routine 12/16/2024 12:58 PM CDT Lower urinary tract symptoms (LUTS) INR,POCT Routine 12/02/2024 10:24 AM CDT Hypoattentuated leaflet thickening (HALT) Anticoagulation monitoring, INR range 2-3 CTA CHEST ABD PELVIS TAVR - CV DUAL READ Routine 11/25/2024 10:50 AM PRODUCT DESIGNER Aortic valve stenosis, etiology of cardiac valve disease unspecified CTA CHEST ABD PELVIS TAVR - RAD DUAL READ Routine 11/25/2024 10:50 AM PRODUCT DESIGNER Aortic valve stenosis, etiology of cardiac valve disease unspecified HEMOGLOBIN Routine 11/25/2024 9:17 AM PRODUCT DESIGNER PMR (polymyalgia rheumatica) (HC) C-REACTIVE PROTEIN Routine 11/25/2024 9: 17 AM PRODUCT DESIGNER PMR (polymyalgia rheumatica) (HC) HEMATOCRIT Routine 11/25/2024 9:01 AM PRODUCT DESIGNER Preprocedural cardiovascular examination ECHO TTE COMPLETE WO CONTRAST Routine 11/18/2024 12:09 PM PRODUCT DESIGNER S/P TAVR (transcatheter aortic valve replacement) XR MAMMO BRITNEY BILAT SCREEN Routine 11/17/2024 4:00 PM PRODUCT DESIGNER Visit for screening mammogram INR,POCT Routine 11/17/2024 2:50 PM PRODUCT DESIGNER Hypoattentuated leaflet thickening (HALT) Anticoagulation monitoring, INR range 2-3 XR DXA BONE DENSITY 2 SITES AXIAL Routine 08/23/2023 11:05 AM PRODUCT DESIGNER Osteoporosis, unspecified osteoporosis type, unspecified pathological fracture presence from Last 3 Months or Most Recently Relevant to Health Maintenance Results * (ABNORMAL) INR - POCT [79002.2] - Standing Order (01/29/2025 1:57 PM CDT) Only the most recent of8 resultswithin the time period is included. INR 2.4(H) ratio [facility] [place] Comment: INRs >2.9 may be falsely elevated in patients receiving either unfractionated Heparin or Low Molecular Weight Heparin. Follow up testing in a hospital laboratory may be helpful if clinically indicated. INR results of > or = 5.0 should be verified using the standard venipuncture procedure. Reference Range 0.9-1.1 Moderate-intensity Warfarin Therapy 2.0-3.0 Higher-intensity Warfarin Therapy 3.0-4.0 PROTHROMBIN TIMEP 29.1(H) 10.5 - 13.1 sec [facility] Comment: Point of care fingerstick Prothrombin Time/INR results may vary from venous Prothrombin Time/INR methodologies. Any results exhibiting inconsistency with the patient's clinical status should be repeated using a venous Prothrombin Time/INR method. Blood BLOOD SPECIMEN / Unknown 01/29/2025 1:57 PM CDT 01/29/2025 1:58 PM CDT Clare Aguayo DO LABORATORY Final Resu lt [facility] [address] [place] [address], [facility] [address] [place] [address] * (ABNORMAL) POCT Urinalysis Dipstick Only [[id number]] (12/16/2024 12:58 PM CDT) PH 7.0 5.0 - 8.0 [facility] SPECIFIC GRAVITY 1.020 1.001 - 1.035 [facility] GLUCOSE NEGATIVE NEGATIVE [facility] BILIRUBIN NEGATIVE NEGATIVE [facility] KETONES NEGATIVE NEGATIVE [facility] OCCULT BLOOD NEGATIVE NEGATIVE [facility] PROTEIN NEGATIVE NEGATIVE [facility] NITRITE NEGATIVE NEGATIVE [facility] LEUKOCYTE ESTERASE 1+(A) NEGATIVE [facility] Urine URINE SPECIMEN / Unknown 12/16/2024 12:58 PM CDT 12/16/2024 12:59 PM CDT Adela PETTIT URINE Final Result [facility] [address] [place] [address], [facility] [address] [place] [address] * (ABNORMAL) URINALYSIS MICROSCOPIC [03647.1] - routine (12/16/2024 12:58 PM CDT) RBC 0-2 0-2, None Seen /HPF 12/16/2024 11:49 PM CDT [facility] WBC 51-100(A) 0-2, 3-5, None Seen /HPF 12/16/2024 11:49 PM CDT [facility] BACTERIA Many(A) None Seen, Rare, Few Bacteria/ HPF 12/16/2024 11:49 PM CDT [facility] EPITHELIAL CELLS None Seen None Seen, Few Epi/HPF 12/16/2024 11:49 PM CDT [facility] HYALINE CASTS 0-2 0-2, 3-5 /LPF 12/16/2024 11:49 PM CDT [facility] Urine URINE SPECIMEN / Unknown Non-Blood / Unknown 12/16/2024 12:58 PM CDT 12/16/2024 12:58 PM CDT Adela PETTIT URINE Final Result [facility] [address] [place] [address], [place] * (ABNORMAL) URINE CULTURE [02934.2] (12/16/2024 12:58 PM CDT) CULTURE RESULT(A) 12/19/2024 7:08 AM CDT [facility] CULTURE >100,000 CFU/mL Escherichia coli 12/19/2024 7:08 AM CDT [facility] Urine URINE SPECIMEN / Unknown Non-Blood / Unknown 12/16/2024 12:58 PM CDT 12/16/2024 12:58 PM CDT Narrative Organism Antibiotic Method Susceptibility Escherichia coli TRIMETHOPRIM/SULF <=1/19: S Escherichia coli AMPICILLIN <=2: S Escherichia coli CEFAZOLIN 2: S Escherichia coli CEFAZOLIN-UC 2: S Comment:Cefazolin-UC interpretations are for therapy of uncomplicated UTIs due to E.coli, K.pneumoniae, or P.mirablis. Cefazolin breakpoint is used as a surrogate to predict results for the oral agents - cefdinir, cefuroxime, and cephalexin, when used for therapy of uncomplicated UTIs due to E coli, K, pneumoniae, and P. mirabilis. The FDA recommends cefadroxil susceptibility can be deduced from cefazolin. Escherichia coli GENTAMICIN <=1: S Escherichia coli CEFTRIAXONE <=0.25: S Escherichia coli CEFTAZIDIME <=0.5: S Escherichia coli LEVOFLOXACIN <=0.12: S Escherichia coli CIPROFLOXACIN <=0.06: S Escherichia coli PIPERACILLIN/TAZO <=4: S Escherichia coli AMPICILLIN/SULBACTAM <=2: S Escherichia coli CEFEPIME <=0.12: S Escherichia coli MEROPENEM <=0.25: S Escherichia coli NITROFURANTOIN <=16: S Adela PETTIT MICROBIOLOGY Final Result [facility] [address] [place] [address], * CTA CHEST ABD PELVIS TAVR - CV DUAL READ (11/25/2024 10:50 AM PRODUCT DESIGNER) Anatomical Region Laterality Modality CHEST, Abdomen, Pelvis Computed Tomography Narrative 11/25/2024 2:52 PM PRODUCT DESIGNER Images from the original result were not included. 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 STUDY PARAMETERS: Scanner: Siemens Definition Force Contrast: 100 ml of Omnipaque 350 Scan protocol: Helical with dose modulation for heart image acquisition. High-pitch for chest, abdomen, and pelvis image acquisition. Radiation dose length product: 1035 for heart and chest, abdomen, pelvis imaging. Image quality: Excellent FINDINGS: Aortic valve: #23 mm Mitchell 3 TAVR with calcification of all 3 leaflets and restricted leaflet mobility consistent with prosthetic valve degeneration. Very mild HALT remains at the base of the non and right coronary leaflets (improved from prior CT from 09/2024 without complete resolution). Redo TAVR analysis Access: Other findings: Coronary arteries: Dominance: Right coronary artery Left main: Patent Left anterior descending artery: Nonobstructive atherosclerosis proximally Left circumflex artery: Nonobstructive atherosclerosis proximally Right coronary artery: Nonobstructive atherosclerosis proximally Left atrium: Normal contrast opacification Pericardium: Normal without effusion. Thoracic aorta: No acute pathology Abdominal aorta: Diffuse atherosclerosis without aneurysm Abdominal aorta branch arteries: Celiac artery Patent. Superior mesenteric artery Patent. Right renal artery Patent. Left renal artery Patent. Inferior mesenteric artery Patent. Noncardiac findings: Please see separate radiology report. FINAL IMPRESSIONS: #23 mm Mitchell 3 TAVR with calcification of all 3 leaflets and restricted leaflet mobility consistent with prostetic valve degeneration. Very mild HALT remains at the base of the non and right coronary leaflets (improved from prior CT from 09/2024 without complete resolution). Redo TAVR analysis demonstrated above (in collaboration with [employer]). Considerations for redo-TAV options: S3 #23: Same size as the index TAV, but given the average area of the index TAV with significant calcification of the leaflets, a second S3 would be significantly underexpanded. S3 #20: Based on the simulation with a virtual napaimute of size 20, an S3 #20 could be an option with secure anchoring, but there is a risk of PPM (see above). Evolut #26: If implanted at the optimal position with inflow to inflow alignment and good expansion, would not expect elevated risk of PPM. Low risk of coronary obstruction with either Mitchell or Evolut. Transfemoral access is favorable on the left. No severe stenosis in the proximal epicardial coronary arteries. Invasive angiogram not needed prior to aortic valve intervention. Given the above imaging findings, further imaging review and multidisciplinary discussion is recommended. FOR PATIENT: Results are automatically released to your [employer] account once available, in compliance with federal regulations. This means that you may see your results before your provider has had a chance to review them. Please allow 2-3 business days for your provider to comment on the results. Richard Rosas MD [facility] 11/25/[address] Final Result * CTA CHEST ABD PELVIS TAVR - RAD DUAL READ (11/25/2024 10:50 AM PRODUCT DESIGNER) Anatomical Region Laterality Modality CHEST, Abdomen, Pelvis Computed Tomography Impressions 12/01/2024 1:39 PM CDT 1. See separate cardiology report for cardiac findings 2. No acute abnormalities of the extracardiac/extravascular structures identified. Please note that all CT scans at this facility use dose modulation, iterative reconstruction and/or weight-based dosing when appropriate to reduce radiation dose to as low as reasonably achievable. Hamamd Gomez M.D. Body/Diagnostic Radiologist [employer] [email or web address] DIPAK/isauro / Narrative 12/01/2024 1:39 PM CDT For Patients: As a result of the Century Cures Act, medical imaging exams and procedure reports are released immediately into your electronic medical record. You may view this report before your referring provider. If you have questions, please contact your health care provider. THIS IS THE RADIOLOGY OVER READ REPORT OF A DUAL READ STUDY. READ THE SEPARATE CARDIOLOGY REPORT FOR CARDIOVASCULAR FINDINGS. REPORTS MAY BE FINALIZED AT DIFFERENT TIMES. TECHNIQUE: Please see cardiology report for technical information. This exam is being performed in conjunction with the services provided by the [facility] ([facility]). INDICATION: Cardiac over-read. FINDINGS: Chest: No mediastinal or hilar adenopathy. No axillary adenopathy. No central pulmonary emboli. The lungs show no focal pulmonary opacities. No pneumothorax. Abdomen and pelvis: No focal abnormalities identified in the visualized portions of the liver, spleen, pancreas and adrenal glands. A few small right renal cysts measuring up to 1.5 cm. The kidneys are otherwise unremarkable. No hydronephrosis. No obstructing uroliths. The GI tract is incompletely distended but shows no gross abnormalities. No retroperitoneal, pelvic sidewall or mesenteric adenopathy. Lenny Estevez MD CT Final Result * HEMOGLOBIN (11/25/2024 9:17 AM PRODUCT DESIGNER) HEMOGLOBIN 12.7 11.7 - 15.5 g/dL [facility] Blood BLOOD SPECIMEN / Unknown 11/25/2024 9:17 AM PRODUCT DESIGNER 11/25/2024 9:18 AM PRODUCT DESIGNER Clare Aguayo DO HEMATOLOGY Final Resu lt [facility] [address] [place] [address], [facility]Urgent Care) [address] [place] [address] * C-REACTIVE PROTEIN (11/25/2024 9:17 AM PRODUCT DESIGNER) C-REACTIVE PROTEIN <3.0 <8.0 mg/L [facility] Blood BLOOD SPECIMEN / Unknown 11/25/2024 9:17 AM PRODUCT DESIGNER 11/25/2024 9:18 AM PRODUCT DESIGNER Clare Aguayo DO CHEMISTRY Final Resu lt [facility] [address] [place] [address], [facility] [address] [place] [address] * HEMATOCRIT (11/25/2024 9:01 AM PRODUCT DESIGNER) HEMATOCRIT 38.9 35.0 - 45.0 % [facility] Blood BLOOD SPECIMEN / Unknown 11/25/2024 9:01 AM PRODUCT DESIGNER 11/25/2024 9:02 AM PRODUCT DESIGNER us Lenny Estevez MD HEMATOLOGY Final Result [facility] [address] [place] [address], [facility]Urgent Care) [address] [place] [address] * ECHO TTE COMPLETE WO CONTRAST (11/18/2024 12:09 PM PRODUCT DESIGNER) AORTIC VALVE MEAN PG 39 mmHg EJECTION FRACTION 68 % LVEDD 3.6 cm Anatomical Region Laterality Modality Ultrasound 11/18/2024 11:0 4 AM PRODUCT DESIGNER Narrative 11/18/2024 1:07 PM PRODUCT DESIGNER ECHOCARDIOGRAM ASHLEY HEREDIA : 1935 89 years Study Date: 11/18/2024 11:04:43 AM Gender: F BP: 150/70 mmHg Height: 167.00 cm BSA: 1.81 m Weight: 72.00 kg Tech: [facility] Referring MD: LENNY ESTEVEZ Site: [facility] Reading Location: [facility] OP Patient Location: Outpatient. Procedure: 2D, Color Doppler and Spectral Doppler. Indication for study: EARLY TAVR Research trial Cardiac Rhythm: Normal sinus.Study quality: Good. Final Impressions: 1. Normal left ventricular size, mildly increased wall thickness, normal global systolic function, calculated EF of 68 %. 2. Right ventricular cavity size is normal, global systolic RV function is normal. 3. Severely enlarged left atrium. 4. The aortic valve is S/P #23mm S3 THV; The THV is well-seated. The leaflets are well-visualized in the apical views and are severly thickened and markedly reduced leaflet excursion.., severe stenosis and trivial regurgitation. There is no paravalvular regurgitation. The aortic valve peak velocity is 4.0 m/s, the peak gradient is 66 mmHg, and the mean gradient is 39 mmHg. The aortic valve area is 0.92 cm with a dimensionless index of 0.26. The stroke volume index is 53.9 ml/m . Note that the gradients across the THV compared from last TTE done on 09/12/2024 remained unchanged. 5. The mitral valve is posterior mitral annular calcification, mild to moderate mitral regurgitation. 6. The transmitral peak and mean gradients are 8 and 3 mmHg respectively (heart rate 64bpm). 7. Tricuspid valve is normal. 8. No pericardial effusion. Chamber Sizes and Function Normal left ventricular size, mildly increased wall thickness, normal global systolic function, calculated EF of 68 %. No resting regional wall motion abnormality visualized. Left atrial size is severely enlarged. Right ventricular cavity size is normal, global systolic RV function is normal. RV wall thickness is normal. The right atrium is normal. The pulmonary artery is of normal size and origin. The sinus of Valsalva is not well visualized. The ascending aorta is not well visualized. Valves, RV Pressures and Diastolic Function The aortic valve is S/P #23mm S3 THV; The THV is well-seated. The leaflets are well-visualized in the apical views and are severly thickened and markedly reduced leaflet excursion.., severe stenosis and trivial regurgitation. There is no paravalvular regurgitation. The mitral valve is posterior mitral annular calcification, mild to moderate mitral regurgitation. Mitral annular calcification is present. Normal diastolic function. The transmitral peak and mean gradients are 8 and 3 mmHg respectively (heart rate 64bpm). The tricuspid valve is normal in structure. Tricuspid regurgitation is trace regurgitation. The pulmonic valve is normal. Trace pulmonary regurgitation. Masses, Effusion, Shunts There is no pericardial effusion. The inferior vena cava is normal sized, respiratory size variation greater than 50%. Interatrial septum is not well visualized. MEASUREMENTS AND CALCULATIONS 2-D Measurements and LV Function: LVID (d) 3.6 cm Planimetered EF 68 % LVID (s) 2.3 cm LV FS% (2D) 36 % IVS (d) 1.1 cm LVOT diameter 1.9 cm LVPW (d) 0.9 cm HR 60 bpm LA Vol index 52 ml/m2 RV Max 4C (d) 3.8 cm Diastology: Tissue Doppler e', Septum 0.04 m/s e', Lateral 0.06 m/s Aortic Valve: Vmax 4.0 m/s ЮЛИЯ (V) 0.83 cm VTI 1.06 m ЮЛИЯ (I) 0.77 cm LVOT V max 1.2 m/s Max PG 66 mmHg LVOT VTI 0.28 m Mean PG 39 mmHg SV 82 ml Dim Index 0.26 SV index 45 ml/m CO 4.9 l/min CI 2.7 l/min/m Mitral Valve: MV Mean G 3 mmHg Tricuspid Valve and estimated PA pressures: TAPSE 1.9 cm . Report modified by Maureen Chen MD on 11/18/2024 1:08:50 PM. This study was interpreted by an [facility] accredited facility. Final (Updated) Procedure Note Maureen Chen, [facility] - 11/18/2024 ECHOCARDIOGRAM ASHLEY HEREDIA : 1935 89 years Study Date: 11/18/2024 11:04:43 AM Gender: F BP: 150/70 mmHg Height: 167.00 cm BSA: 1.81 m Weight: 72.00 kg Tech: [facility] Referring MD: LENNY ESTEVEZ Site: [facility] Reading Location: [facility] OP Patient Location: Outpatient. Procedure: 2D, Color Doppler and Spectral Doppler. Indication for study: EARLY TAVR Research trial Cardiac Rhythm: Normal sinus.Study quality: Good. Final Impressions: 1. Normal left ventricular size, mildly increased wall thickness, normalglobal systolic function, calculated EF of 68 %. 2. Right ventricular cavity size is normal, global systolic RV functionis normal. 3. Severely enlarged left atrium. 4. The aortic valve is S/P #23mm S3 THV; The THV is well-seated. Theleaflets are well-visualized in the apical views and are severly thickenedand markedly reduced leaflet excursion.., severe stenosis and trivialregurgitation. There is no paravalvular regurgitation. The aortic valvepeak velocity is 4.0 m/s, the peak gradient is 66 mmHg, and the meangradient is 39 mmHg. The aortic valve area is 0.92 cm with adimensionless index of 0.26. The stroke volume index is 53.9 ml/m . Notethat the gradients across the THV compared from last TTE done on09/12/2024 remained unchanged. 5. The mitral valve is posterior mitral annular calcification, mild tomoderate mitral regurgitation. 6. The transmitral peak and mean gradients are 8 and 3 mmHg respectively(heart rate 64bpm). 7. Tricuspid valve is normal. 8. No pericardial effusion. Chamber Sizes and Function Normal left ventricular size, mildly increased wall thickness, normalglobal systolic function, calculated EF of 68 %. No resting regional wallmotion abnormality visualized. Left atrial size is severely enlarged.Right ventricular cavity size is normal, global systolic RV function isnormal. RV wall thickness is normal. The right atrium is normal. Thepulmonary artery is of normal size and origin. The sinus of Valsalva isnot well visualized. The ascending aorta is not well visualized. Valves, RV Pressures and Diastolic Function The aortic valve is S/P #23mm S3 THV; The THV is well-seated. The leafletsare well-visualized in the apical views and are severly thickened andmarkedly reduced leaflet excursion.., severe stenosis and trivialregurgitation. There is no paravalvular regurgitation. The mitral valve isposterior mitral annular calcification, mild to moderate mitralregurgitation. Mitral annular calcification is present. Normal diastolicfunction. The transmitral peak and mean gradients are 8 and 3 mmHgrespectively (heart rate 64bpm). The tricuspid valve is normal instructure. Tricuspid regurgitation is trace regurgitation. The pulmonicvalve is normal. Trace pulmonary regurgitation. Masses, Effusion, Shunts There is no pericardial effusion. The inferior vena cava is normal sized,respiratory size variation greater than 50%. Interatrial septum is notwell visualized. MEASUREMENTS AND CALCULATIONS 2-D Measurements and LV Function: LVID (d) 3.6 cm Planimetered EF 68 % LVID (s) 2.3 cm LV FS% (2D) 36 % IVS (d) 1.1 cm LVOT diameter 1.9 cm LVPW (d) 0.9 cm HR 60 bpm LA Vol index 52 ml/m2 RV Max 4C (d) 3.8 cm Diastology: Tissue Doppler e', Septum 0.04 m/s e', Lateral 0.06 m/s Aortic Valve: Vmax 4.0 m/s ЮЛИЯ (V) 0.83 cm VTI 1.06 m ЮЛИЯ (I) 0.77 cm LVOT V max 1.2 m/s Max PG 66 mmHg LVOT VTI 0.28 m Mean PG 39 mmHg SV 82 ml Dim Index 0.26 SV index 45 ml/m CO 4.9 l/min CI 2.7 l/min/m Mitral Valve: MV Mean G 3 mmHg Tricuspid Valve and estimated PA pressures: TAPSE 1.9 cm . Report modified by Maureen Chen MD on 11/18/2024 1:08:50 PM. This study was interpreted by an [facility] accredited facility. Final (Updated) Lenny Estevez MD ECHO ORD Edited Result - Final * XR MAMMO BRITNEY BILAT SCREEN (11/17/2024 4:00 PM PRODUCT DESIGNER) Anatomical Region Laterality Modality BREASTS, Breast Left, Breast Right Bilateral Mammography Impressions 11/19/2024 2:13 PM PRODUCT DESIGNER There is no radiographic evidence for malignancy. Recommend annual mammograms. MAMMOGRAM ASSESSMENT: ACR 1 Negative PATIENTS: You will also receive a letter with your examination results in an easy to read format. If you have questions about your results, please contact your referring provider. Narrative 11/19/2024 2:13 PM PRODUCT DESIGNER For Patients: As a result of the Century Cures Act, medical imaging exams and procedure reports are released immediately into your electronic medical record. You may view this report before your referring provider. If you have questions, please contact your health care provider. XR MAMMO BRITNEY BILAT SCREEN [[id number]] CLINICAL HISTORY: This is an asymptomatic 89 y.o. patient. INDICATION FOR EXAM: Mammogram Screening. TECHNIQUE: CC and MLO views were obtained. This study was evaluated with the assistance of Computer-Aided Detection. Breast Tomosynthesis was used in interpretation. COMPARISON FILM: Yes 10/11/23 [facility] 09/19/22 [facility] FINDINGS: There are scattered areas of fibroglandular density. There are no dominant masses, suspicious micro calcifications or areas of architectural distortion. Clare Aguayo DO MAMMO Final Resu lt * (ABNORMAL) XR DXA BONE DENSITY 2 SITES AXIAL (08/23/2023 11:05 AM PRODUCT DESIGNER) Anatomical Region Laterality Modality Spine, HIPS, HIPL, HIPR Other Impressions 09/03/2023 7:42 AM PRODUCT DESIGNER Osteopenia. RECOMMENDATIONS: The National Osteoporosis Foundation recommends pharmacologic treatment for patients with T-scores of -2.5 or less, patients with prior history of fragility fractures, or patients with 10-year probability of greater than 3% at hips or greater than 20% of suffering major osteoporotic fractures. Recommend continued optimization of calcium and vitamin D intake through dietary means and/or supplementation and regular exercise. Consider pharmacologic therapy for osteopenia with increased fracture risk. Follow-up bone density reading in 2 years if therapy initiated to assess therapeutic efficacy. Unsure when Fosamax was discontinued. Consider alternative medication due to high fracture risk. Ewa Mckeon PA-C [facility] 09/03/2023 Narrative 09/03/2023 7:42 AM PRODUCT DESIGNER For Patients: Results are automatically released to your [facility] account once available, in compliance with federal regulations. This means that you may see your results before your provider has had a chance to review them. Please allow 2-3 business days for your provider to comment on the results. XR DXA Bone Mineral Density (BMD) EXAM LOCATION: [facility] [address] [facility] [address] PATIENT NAME: Ashley Heredia DATE OF : 1935 EXAM DATE: 08/23/2023 REQUESTING PROVIDER: Cammy Kwan MBBS GENDER AT : female HEIGHT: 5' 5.75 (02/12/2023) WEIGHT: 159 lb (08/21/2023) MENOPAUSAL STATUS: Postmenopausal RACE/ETHNICITY: White RISK FACTORS: Family History of Hip Fracture (parental), Smoking (prior), Steroid Medication (non-topical), and White Race CURRENT MEDICATION FOR BONE LOSS: NONE INDICATION: Osteoporosis, unspecified osteoporosis type, unspecified pathological fracture presence COMPARISON DATE(S): 2020 DXA scans are compared to prior studies for a patient only when the two (or more) studies were performed on the same scanner. It is not possible to compare data generated on one scanner to data from another because there are not standards in DXA equipment. This applies even if the two scanners are made by the same whitewater rafting guide. PROCEDURE: Dual-energy x-ray absorptiometry performed with routine technique. Reporting is completed in the form of a T-score. The T-score represents the standard deviation from peak bone mass based on young healthy adult. A Z-score is used for diagnosis in premenopausal women, and for men under the age of 50. FINDINGS: RESULT LUMBAR SPINE L1 - L3 (W/O L2 & L4) BMD: 0.926 g/cm2 T-Score: - 2.1 Z-Score: - 0.4 Change from prior in 2020: Decrease 2.1%. RESULTS FEMUR Left femoral neck BMD: 0.716 g/cm2 T-Score: - 2.3 Z-Score: + 0.0 Change from prior: None Right femoral neck BMD: 0.745 g/cm2 T-Score: - 2.1 Z-Score: + 0.3 Change from prior in 2020: Increase 7.0%. Left hip BMD: 0.754 g/cm2 T-Score: - 2.0 Z-Score: + 0.3 Change from prior in 2020: Decrease 8.3%. Right hip BMD: 0.785 g/cm2 T-Score: - 1.8 Z-Score: + 0.5 Change from prior in 2020: Decrease 0.1%. WHO criteria: Normal: T-score at or above -1 SD Osteopenia: T-score between -1.1 and -2.4 SD Osteoporosis: T-score at or below -2.5 SD FRAX RISK CALCULATION (USED FOR OSTEOPENIA ONLY): 10-year probability of major osteoporotic fracture: 30.4%. 10-year probability of hip fracture: 21.5%. Cammy QUIROGA DEXA Final Result from Last 3 Months or Most Recently Relevant to Health Maintenance Insurance MEDICARE PART B HB ONLY [place] BLUE MR PB ONLY [place] BLUE HB ONLY MEDICARE PART A HB ONLY Advance Directives Documents on File Type Date Recorded Patient Sr. Social Media & Mobile Manager Expl anation Healthcare Directive 06/28/2012 1:10 PM HE ALTH CARE DIRECTIVE, 10/18/09 * Full Code (Latest Code Status on File) Date Activated Date Inactivated Comments 10/21/2019 12:26 PM 10/22/2019 3:27 PM Question Answer Comments Code Status Discussion: Per Advance Care Plan * Full Code Date Activated Date Inactivated Comments 08/15/2019 10:41 AM 08/15/2019 8:50 PM Care Teams Drug And Alcohol Counsellor Relationship Specialty Start Date End Date Clare Aguayo DO [address] [place] [address] PCP - General Family Practice 10/27/21 Prosper Doyle [address] [place] [id number] House Servant 06/10/12 Cesar Godinez MD [address] [place] [address] Sports Medicine 06/30/14 Cammy Kwan MBBS [address] [facility] [address] [place] [address] Endocrinology 02/27/23
== END 2025-02-07 13:26 | disposition home or self-care (01) ==
PROVIDERS: Emergency Provider Internal Medicine; PCP Family Medicine
DX: R53.1 Weakness (principal)
CPT/HCPCS: 36415; 71045; 80053; 81003; 84484; 85025; 85379; 93005; 99283; 99284

== ENCOUNTER 2025-02-08 22:50 | Outpatient (CLI) | payer MEDICARE, BC, SELFPAY | END 2025-02-08 22:51 | disposition home or self-care (01) | LOC: AMB 02-09 14:12 | PROVIDERS: PCP Family Medicine; Visit Provider Emergency Medicine | DX: R53.1 Weakness (principal) | CPT/HCPCS: A0998 ==